=== PATIENT | female | born 1980 | race Caucasian/White ===

== ENCOUNTER → 2017-02-03 11:56 | Outpatient (CLI) | payer MEDICAID ==
[2012-05-16 08:55] VITALS: BMI 45.8
== END | disposition home or self-care (01) ==
LOC: D.RAD 11:56
DX: M47.897 Other spondylosis, lumbosacral region (principal); M46.92 Unspecified inflammatory spondylopathy, cervical region; M47.817 Spondylosis without myelopathy or radiculopathy, lumbosacral region; M47.9 Spondylosis, unspecified; M47.819 Spondylosis without myelopathy or radiculopathy, site unspecified; G89.4 Chronic pain syndrome

== ENCOUNTER 2017-07-08 14:34 | Emergency (ER) | payer MEDICAID ==
[2012-05-16 08:55] VITALS: BMI 45.8
== END 2017-07-08 17:49 | disposition home or self-care (01) ==
LOC: D.ER 14:34
DX: M62.838 Other muscle spasm (principal); M25.512 Pain in left shoulder

== ENCOUNTER 2017-10-03 17:08 | Emergency (ER) | payer MEDICAID ==
[~2017-10-03] VITALS: Ht 157.5 cm; Wt 110.5 kg
[2017-10-03 17:13] VITALS: Ht 157.5 cm; Wt 110.5 kg
[2017-10-03] MEDS ORDERED: CYCLOBENZAPRINE10 MG PO (17:17)
[2017-10-03] MEDS ORDERED: LEVOTHYROXINE125 MCG PO (17:18)
[2017-10-03] MEDS ORDERED: MOBIC7.5 MG PO (17:19)
[2017-10-03] MEDS ORDERED: ZESTORETIC 20/21 TAB PO (17:20)
[2017-10-03] MEDS ORDERED: NEURONTIN 300300 MG PO (17:20)
[2017-10-03] MEDS ORDERED: HYDROCODONE-APA1 TAB PO (17:21)
[2017-10-03 19:48] VITALS: BP 151/69
== END 2017-10-03 19:49 | disposition home or self-care (01) ==
LOC: D.ER 17:08
DX: I95.9 Hypotension, unspecified (principal)

== ENCOUNTER 2018-12-08 14:03 | Emergency (ER) | payer MEDICAID ==
[~2018-12-08] VITALS: Ht 157.5 cm; Wt 107.7 kg
[~2018-12-08 14:03] MED LIST: CYCLOBENZAPRINE10 MG PO; HYDROCODONE-APA1 TAB PO; LEVOTHYROXINE125 MCG PO; MOBIC7.5 MG PO; NEURONTIN 300300 MG PO; ZESTORETIC 20/21 TAB PO
[2018-12-08 14:11] VITALS: Ht 157.5 cm; Wt 107.7 kg
[2018-12-08 15:25] LABS: BASOPHILS 0.2 % (0-2); EOSINOPHILS 2.3 % (0-7); HEMATOCRIT 42.7 % (36.0-48.0); HEMOGLOBIN 14.6 g/dL (12-16); IMMATURE GRANULOCYTES 0.1 % (0-5); LYMPHOCYTES 19.2 % (15-50); MCH 32.4 pg (26.0-34.0); MCHC 34.2 g/dL (31.0-37.0); MCV 94.9 fL (80.0-100.0); MEAN PLATELET VOLUME 9.8 fL (7.4-10.4); MONOCYTES 8.3 % (2-11); NEUTROPHILS 69.9 % (40-80); RDW 13.8 % (11.5-14.5); WBC 8.1 10x3/uL (4.8-10.8)
[2018-12-08 15:34] LABS: PLATELET COUNT 261 10x3/uL (130-400)
[2018-12-08 15:36] LABS: ALKALINE PHOSPHATASE 94 U/L (46-116); ALT (SGPT) 28 U/L (10-68); BILIRUBIN - TOTAL 0.39 mg/dL (0.2-1.3); CALC OSMOLALITY 271 mosm/kg (275-300); CALCIUM 9.1 mg/dL (8.5-10.1); CARBON DIOXIDE 22.1 mmol/L (21.0-32.0); CHLORIDE - SERUM 103 mmol/L (98-107); CREATININE - SERUM 0.8 mg/dL (0.6-1.3); GLUCOSE 95 mg/dL (74-106); POTASSIUM - SERUM 4.2 mmol/L (3.5-5.1); PROTEIN - SERUM 7.5 g/dL (6.4-8.2); SODIUM 137 mmol/L (136-145); UREA NITROGEN 7 mg/dL (7-18); eGFR NON AFRICAN AMERICAN 86 mL/min (90-120)
[2018-12-08] MEDS ORDERED: TORADOL10 MG PO (16:33)
[2018-12-08 16:59] VITALS: BP 126/76
== END 2018-12-08 16:59 | disposition home or self-care (01) ==
LOC: D.ER 14:03
PROVIDERS: Family Medicine
DX: M79.661 Pain in right lower leg (principal); M54.16 Radiculopathy, lumbar region

== ENCOUNTER 2019-07-08 16:22 | Emergency (ER) | payer MEDICAID ==
[~2019-07-08] VITALS: Ht 157.5 cm; Wt 113.6 kg
[~2019-07-08 16:22] MED LIST changes: +TORADOL10 MG PO
[2019-07-08 16:32] VITALS: Ht 157.5 cm; Wt 113.6 kg
[2019-07-08] MEDS ORDERED: CYMBALTA20 MG PO (16:34)
[2019-07-08 17:15] LABS: BASOPHILS 0.4 % (0-2); EOSINOPHILS 3.1 % (0-7); HEMATOCRIT 45.6 % (36.0-48.0); HEMOGLOBIN 14.8 g/dL (12-16); IMMATURE GRANULOCYTES 0.1 % (0-5); LYMPHOCYTES 19.9 % (15-50); MCH 32.2 pg (26.0-34.0); MCHC 32.5 g/dL (31.0-37.0); MCV 99.1 fL (80.0-100.0); NEUTROPHILS 68.5 % (40-80); PLATELET COUNT 300 10x3/uL (130-400); RDW 13.4 % (11.5-14.5); WBC 7.8 10x3/uL (4.8-10.8)
[2019-07-08 17:34] LABS: BILIRUBIN NEGATIVE (NEGATIVE); EPITHELIAL CELLS 0-5 /hpf (0-5); GLUCOSE NEGATIVE (NEGATIVE); KETONE NEGATIVE (NEGATIVE); NITRITE NEGATIVE (NEGATIVE); RED CELLS - URINE >50 /hpf (0-5); SPECIFIC GRAVITY 1.005 (1.005-1.020); UROBILINOGEN NORMAL (NORMAL); WHITE CELLS - URINE 0-5 /hpf (NEGATIVE)
[2019-07-08 17:41] LABS: ALBUMIN 3.9 g/dL (3.4-5.0); BILIRUBIN - TOTAL 0.74 mg/dL (0.2-1.3); CALC OSMOLALITY 265 mosm/kg (275-300); CALCIUM 9.1 mg/dL (8.5-10.1); CARBON DIOXIDE 27.9 mmol/L (21.0-32.0); CHLORIDE - SERUM 99 mmol/L (98-107); CREATININE - SERUM 0.5 mg/dL (0.6-1.3); GLUCOSE 78 mg/dL (74-106); PROTEIN - SERUM 8.2 g/dL (6.4-8.2); SODIUM 134 mmol/L (136-145); UREA NITROGEN 9 mg/dL (7-18); eGFR NON AFRICAN AMERICAN > 90 mL/min (90-120)
[2019-07-08 17:42] LABS: HCG SERUM NEGATIVE (NEGATIVE)
[2019-07-08 17:43] LABS: ALKALINE PHOSPHATASE 85 U/L (30-120); ALT (SGPT) 36 U/L (10-68)
[2019-07-08] MEDS ORDERED: MACROBID100 MG PO (19:40)
[2019-07-08] MEDS ORDERED: KEFLEX500 MG PO (19:40)
[2019-07-08 21:28] VITALS: BP 132/97
== END 2019-07-08 21:28 | disposition home or self-care (01) ==
LOC: D.ER 16:22
PROVIDERS: Family Medicine
DX: N93.8 Other specified abnormal uterine and vaginal bleeding (principal); N39.0 Urinary tract infection, site not specified; E07.9 Disorder of thyroid, unspecified; I10 Essential (primary) hypertension